=== PATIENT | female | born 1945 | race Caucasian/White ===

== ENCOUNTER 2016-11-04 11:23 | Observation (INO) | payer MEDICARE, OTHER ==
[~2016-11-04] VITALS: Ht 149.9 cm; Wt 61.0 kg
[~2016-11-04 11:23] MED LIST: ALBUTEROL IN200 PUFF INH; ALBUTEROL0.63 MG/3 NEB; ALLEGRA ALLERGY60 MG PO; ASPIRIN EC81 MG PO; ATIVAN1 MG PO; ATROVENT2.5 ML NEB; AUGMENTIN 875-1 EACH PO; BACTRIM DS TAB1 EACH PO; CARAFATE1 GM PO; CEFDINIR300 MG PO; CHILDRENS CHEWA81 MG PO; CIPRO500 MG PO; COLACE100 MG PO; DALIRESP500 MCG PO; DESYREL50 MG PO; DUONEB 2.5-0.5MG3 ML NEB; FEXOFENADINE HC60 MG PO; GLUCOPHAGE500 MG PO; HCTZ25 MG PO; IBUPROFEN800 MG PO; ISOSORBIDE MONO30 MG PO; KLOR-CON 88 MEQ PO; LEVAQUIN500 MG PO; LEVAQUIN750 MG PO; MEDROL4 M1 PO; NEURONTIN800 MG PO; NIFEDIPINE XL30 MG PO; OMNIPRED5 ML OP; OXYCONTIN15 MG PO; PAIN RELIEF650 MG PO; PANTOPRAZOLE SO40 MG PO; PAXIL10 MG PO; PEPCID20 MG PO; PRAVACHOL40 MG PO; PREDNISONE10 MG PO; PREDNISONE5 MG PO; PROTONIX40 MG PO; QVAR8.7 G1 INH; RESTASIS1 EACH OP; ROBITUSSIN100 MG/5 M PO; SINGULAIR10 MG PO; SPIRIVA18 MCG INH; SYMBICORT 16060 PUFF INH; TESSALON PERLE100 MG PO; TOPROL XL25 MG PO; TRILIPIX135 MG PO; TYLENOL325 M1 PO; VISTARIL50 MG PO; VITAMIN D250000 UNIT PO; XOPENEX0.63 MG/3 NEB; ZESTRIL2.5 MG PO; ZITHROMAX250 MG PO; ZOLOFT50 MG PO
[2016-11-04 11:57] LABS: BASO # 0.2 10_X3_uL (0.0-0.1); BASO % 1.6 % (0.1-1.2); EOS # 1.7 10_X3_uL (0.0-0.4); HEMOGLOBIN 11.6 g/dL (11.2-15.7); LYMPH # 2.4 10_X3_uL (1.2-3.7); LYMPH % 24.4 % (19.3-51.7); MEAN CORPUSCULAR HEMOGLOBIN 26.9 pg (27.0-33.0); MEAN CORPUSCULAR HGB CONC 33.1 g/dL (32.0-36.0); MEAN PLATELET VOLUME 9.5 fl (7.5-11.5); MONO # 0.6 10_X3_uL (0.2-0.9); PLATELET COUNT 477 x10_3/uL (182-369); RED BLOOD COUNT 4.32 x10_6/uL (3.9-5.2); RED CELL DISTRIBUTION WIDTH 14.5 % (11.7-14.4); WHITE BLOOD COUNT 9.7 x10_3/uL (4.0-10.0)
[2016-11-04 12:10] LABS: ALBUMIN 4.5 gm/dL (3.4-5.0); ALKALINE PHOSPHATASE 86 U/L (50-136); ALT/SGPT 15 U/L (3.5-33.9); AST/SGOT 26 U/L (7.04-26.96); BILIRUBIN,TOTAL 0.19 mg/dL (0.0-1.0); BLOOD UREA NITROGEN 9 mg/dL (7-18); CALCIUM 9.5 mg/dL (8.7-10.7); CARBON DIOXIDE 28 mmol/L (21-32); CREATININE 0.5 mg/dL (0.6-1.3); GLUCOSE,RANDOM 101 mg/dL (70-99); POTASSIUM 3.8 mmol/L (3.5-5.1); SODIUM 139 mmol/L (136-145); TOTAL PROTEIN 7.4 gm/dL (6.4-8.2)
[2016-11-04 12:57] LABS: ARTERIAL BLD GAS O2 SATURATION 95.5 % (94-98); ARTERIAL BLOOD GAS BASE EXCESS 5.2 mmol/L (-2.0-3.0); ARTERIAL BLOOD GAS HCO3 29.1 mmol/L (22-26); ARTERIAL BLOOD GAS PCO2 41.7 mmHg (32-45); ARTERIAL BLOOD GAS pH 7.46 (7.35-7.45)
[2016-11-05 15:03] LABS: HEMATOCRIT 35.9 % (34-45); HEMOGLOBIN 11.4 g/dL (11.2-15.7); MEAN CORPUSCULAR HEMOGLOBIN 26.6 pg (27.0-33.0); MEAN CORPUSCULAR HGB CONC 31.8 g/dL (32.0-36.0); MEAN CORPUSCULAR VOLUME 83.7 fL (79-95); MEAN PLATELET VOLUME 10.3 fl (7.5-11.5); RED BLOOD COUNT 4.29 x10_6/uL (3.9-5.2); RED CELL DISTRIBUTION WIDTH 14.6 % (11.7-14.4)
[2016-11-05 15:42] LABS: BLOOD UREA NITROGEN 9 mg/dL (7-18); CALCIUM 9.6 mg/dL (8.7-10.7); CARBON DIOXIDE 25 mmol/L (21-32); CREATININE 0.5 mg/dL (0.6-1.3); GLUCOSE,RANDOM 136 mg/dL (70-99); MAGNESIUM 1.7 mg/dL (1.8-2.4); POTASSIUM 4.1 mmol/L (3.5-5.1); SODIUM 137 mmol/L (136-145)
[2016-11-06 06:47] LABS: HEMATOCRIT 32.9 % (34-45); HEMOGLOBIN 10.5 g/dL (11.2-15.7); MEAN CORPUSCULAR HEMOGLOBIN 26.6 pg (27.0-33.0); MEAN CORPUSCULAR HGB CONC 31.9 g/dL (32.0-36.0); MEAN CORPUSCULAR VOLUME 83.3 fL (79-95); MEAN PLATELET VOLUME 9.1 fl (7.5-11.5); RED BLOOD COUNT 3.95 x10_6/uL (3.9-5.2); RED CELL DISTRIBUTION WIDTH 14.4 % (11.7-14.4)
[2016-11-06 06:51] LABS: ALKALINE PHOSPHATASE 65 U/L (50-136); ALT/SGPT 14 U/L (3.5-33.9); AST/SGOT 22 U/L (7.04-26.96); BILIRUBIN,TOTAL 0.16 mg/dL (0.0-1.0); BLOOD UREA NITROGEN 13 mg/dL (7-18); CALCIUM 9.2 mg/dL (8.7-10.7); CARBON DIOXIDE 29 mmol/L (21-32); CREATININE 0.5 mg/dL (0.6-1.3); GLUCOSE,RANDOM 139 mg/dL (70-99); POTASSIUM 4.1 mmol/L (3.5-5.1); SODIUM 138 mmol/L (136-145); TOTAL PROTEIN 6.9 gm/dL (6.4-8.2)
== END 2016-11-06 11:50 | disposition home or self-care (01) ==
LOC: ER 11:23 → MS 12:58 → UNDODEPER 11-06 13:35
PROVIDERS: General Practice; ADMIT Family Medicine
DX: J96.01 Acute respiratory failure with hypoxia (principal); J44.1 Chronic obstructive pulmonary disease with (acute) exacerbation; E11.9 Type 2 diabetes mellitus without complications; E03.9 Hypothyroidism, unspecified; I10 Essential (primary) hypertension; Z79.891 Long term (current) use of opiate analgesic; Z79.899 Other long term (current) drug therapy; Z79.84 Long term (current) use of oral hypoglycemic drugs
CPT/HCPCS: 36415; 36600; 71250; 80048; 80053; 80061; 82803; 82962; 83036; 83605; 83735; 83880; 85025; 86738; 87040; 87070; 87186; 87205; 87449; 93005; 94640; 94664; 96365; 96366; 96367; 96372; 96375; 96376; 99070; 99284; 99285-25; G0378; J2930; J7050